=== PATIENT | male | born 1950 | race Caucasian/White ===

== ENCOUNTER → 2016-04-01 | Outpatient (CLI) | payer MEDICARE ==
--- NOTE | 2016-04-01 17:25 | REP ---
Left hand series: Four views. History: Swelling and redness. No injury. Findings: Four views of the left hand show no evidence of opaque foreign body, periosteal reaction or fracture. There is dorsal metacarpal soft tissue swelling. Impression: Dorsal swelling. No acute bony abnormality. Signed by Merlin Moe MD 04/01/2016 05:35 P
[2016-04-01 19:46] LABS: BASO % 0.5 % (0.0-1.0); EOS # 0.3 K/mm3 (0.0-0.50); EOS % 2.9 % (0.0-3.0); LARGE UNSTAINED CELL # 0.2 K/mm3 (0.0-0.4); LARGE UNSTAINED CELL % 2.3 % (0.0-4.0); LYMPH # 1.5 K/mm3 (1.5-4.5); LYMPH % 14.7 % (24.0-44.0); MEAN CORPUSCULAR HEMOGLOBIN 31.2 pg (27.0-33.0); MEAN CORPUSCULAR HGB CONC 32.7 g/dl (32.0-36.5); MEAN CORPUSCULAR VOLUME 95.5 fl (80.0-96.0); MONO # 0.8 K/mm3 (0.0-0.8); MONO % 7.5 % (0.0-5.0); NEUTROPHILS # 7.2 K/mm3 (1.8-7.7); NEUTROPHILS % 72.1 % (36.0-66.0); PLATELET COUNT, AUTOMATED 522 k/mm3 (150-450); RED CELL DISTRIBUTION WIDTH 15.8 % (11.5-14.5)
== END ==
LOC: M WUC 15:17
PROVIDERS: ATTEND Physician Assistant
DX: M25.541 Pain in joints of right hand (principal); M79.89 Other specified soft tissue disorders

== ENCOUNTER → 2017-01-08 | Outpatient (REF) ==
--- NOTE | 2017-01-08 16:26 | REP ---
RIGHT FOREARM, TWO VIEWS: There is no evidence of an acute fracture, dislocation or intrinsic bone disease. IMPRESSION: No fracture or dislocation. Signed by Yosi Saxena MD 01/09/2017 07:55 P
== END ==
LOC: M RAD 14:40
PROVIDERS: ATTEND Family Medicine
DX: Z04.9 Encounter for examination and observation for unspecified reason (principal)